=== PATIENT | male | born 1965 | race African-American/Black ===

== ENCOUNTER 2016-10-19 10:49 | Emergency (ER) | payer BC ==
[~2016-10-19] VITALS: Ht 172.7 cm; Wt 99.8 kg
[2016-10-19 11:54] LABS: BASOPHIL % 0.6 % (0-2); PLATELET COUNT 220 x10^3mcL (130-400); RED CELL DISTRIBUTION WIDTH 14.2 % (11.5-14.5)
[2016-10-19 12:07] LABS: CALCIUM 9.1 mg/dL (8.5-10.1); CARBON DIOXIDE 29.5 mmol/L (21-32); CHLORIDE SERUM 106 mmol/L (98-107); CREATININE SERUM 1.3 mg/dL (0.7-1.3); GFR1 > 60 mL/min; GLUCOSE SERUM 96 mg/dL (74-106); POTASSIUM SERUM 3.8 mmol/L (3.5-5.1); SODIUM SERUM 141 mmol/L (136-145)
[2016-10-19 12:11] LABS: ALBUMIN 4.3 g/dL (3.4-5.0); ALKALINE PHOSPHATASE 61 U/L (46-116); ALT/SGPT 43 U/L (16-63); AST/SGOT 22 U/L (15-37); BILIRUBIN TOTAL 0.7 mg/dL (0.20-1.00); LIPASE 609 IU/L (73-393); TOTAL PROTEIN, SERUM 7.9 g/dL (6.4-8.2)
[2016-10-19 13:02] VITALS: BP 134/67
== END 2016-10-19 13:02 | disposition home or self-care (01) ==
LOC: ED 10:49
PROVIDERS: Emergency Medicine
DX: M54.9 Dorsalgia, unspecified (principal); I10 Essential (primary) hypertension
CPT/HCPCS: J1885